=== PATIENT | female | born 1945 | race Caucasian/White ===

== ENCOUNTER 2016-12-05 23:23 | Emergency (ER) | payer MEDICARE ==
--- NOTE | 2016-12-05 23:55 | Emergency Department Record ---
History of Present Illness - General Chief complaint: Female Urogenital Problem Stated complaint: UTI Time Seen by Provider: 12/05/16 23:54 Source: Patient Mode of Arrival: Ambulatory Limitations: No limitations - History of Present Illness Initial comments: The patient is here due to pelvic cramping and urinary burning for the last 6 hours. She was recently 2 weeks ago treated for a UTI with Cipro but did have her urine rechecked last week and was told everything was ok. Now the urinary symptoms have returned today. Additionally she feels she may have a yeast infection. The patient denies any abdominal pain, fever, chills, vomiting, or diarrhea. MD Complaint: Dysuria Onset/Timin -: Hour(s) Severity scale (1-10): 5 Quality: Burning, Cramping Consistency: Intermittent Improves with: None Worsens with: Urination Associated Symptoms: Dysuria, Vaginal discharge - Related Data Home Medications Medication Instructions Recorded Confirmed Last Taken Albuterol Sulfate 0.083% [Neb] 3 ml NEB .EVERY 4-6 HOURS PRN 12/05/16 12/06/16 Unknown Albuterol Sulfate [Ventolin Hfa] 1 - 2 puff IH .EVERY 4-6 HOURS PRN 12/05/16 Unknown Aspirin 81 mg PO DAILY 12/05/16 12/06/16 Unknown Citalopram Hydrobromide 20 mg PO DAILY 12/05/16 12/06/16 Unknown [Citalopram HBr] Fluticasone Propionate [Flonase] 2 spray EACH NARES DAILY 12/05/16 12/06/16 Unknown Hydrochlorothiazide [Hctz 12.5MG] 25 mg PO DAILY 12/05/16 12/06/16 Unknown Lisinopril [Zestril] 30 mg PO DAILY 12/05/16 12/06/16 Unknown Loratadine [Claritin] 10 mg PO QPM 12/05/16 12/06/16 Unknown Lovastatin 40 mg PO QPM 12/05/16 12/06/16 Unknown Metoprolol Succinate [Toprol Xl] 25 mg PO QPM 12/05/16 12/06/16 Unknown Multivitamin [Multi-Vitamin Daily] 1 each PO DAILY 12/05/16 12/06/16 Unknown Omeprazole 40 mg PO DAILY 12/05/16 12/06/16 Unknown Ascorbic Acid [Vitamin C] 1,000 mg PO DAILY 12/06/16 12/06/16 Unknown Calcium Carb/Vitamin D3/Vit K1 2 each PO DAILY 12/06/16 12/06/16 Unknown [Calcium + D Soft Chewable Tab] Flaxseed Oil [Flax Seed Oil] 1,000 mg PO DAILY 12/06/16 12/06/16 Unknown Previous Rx's Medication Instructions Recorded Nitrofurantoin Trigg [Macrobid] 100 mg PO BID #10 capsule 12/06/16 Allergies Allergy/AdvReac Type Severity Reaction Status Date / Time acetaminophen Allergy RAPID Verified 12/05/16 23:37 [From Darvocet-N] HEART RATE prednisone Allergy RASH Verified 12/05/16 23:37 propoxyphene [From Darvon] Allergy RAPID Verified 12/05/16 23:37 HEART RATE caffeine AdvReac jittery Verified 12/05/16 23:37 pseudoephedrine AdvReac RAPID Verified 12/05/16 23:37 [From Sudafed] HEART RATE Travel Screening - Travel/Exposure Within Last 30 Days Have you traveled within the last 30 days?: No - Travel Symptoms Symptom Screening: None Review of Systems Constitutional: Denies: Chills, Fever Eyes: Denies: Eye discharge ENT: Denies: Congestion Respiratory: Denies: Cough, Dyspnea Past Medical History - SOCIAL HISTORY Smoking Status: Never smoker - RESPIRATORY Hx Respiratory Disorders: Yes Hx Asthma: Yes - CARDIOVASCULAR Hx Cardio Disorders: Yes Hx Hypertension: Yes Comment:: high cholesterol ; leaking heart valve - NEURO Hx Neuro Disorders: No - GI Hx GI Disorders: Yes Hx Reflux: Yes - Hx Genitourinary Disorders: Yes Hx Renal Disease: (only has 1 kidney from ) - ENDOCRINE Hx Endocrine Disorders: No - MUSCULOSKELETAL Hx Musculoskeletal Disorders: Yes Hx Arthritis: Yes - PSYCH Hx Psych Problems: Yes Hx Depression: Yes - HEMATOLOGY/ONCOLOGY Hx Hematology/Oncology Disorders: No Family Medical History Any Significant Family History?: Yes Family Hx Comment (NOT TO BE USED IN PLACE OF ITEMS BELOW): Father from sepsis Hx Heart Disease: Mother, Grandparents Physical Exam - General General Appearance: Alert, Oriented x3, Cooperative, No acute distress - Head Head exam: Atraumatic, Normocephalic, Normal inspection - Eye Eye exam: Normal appearance, PERRL - Neck Neck exam: Normal inspection, Full ROM. negative: Tenderness - Respiratory Respiratory exam: Normal lung sounds bilaterally. negative: Respiratory distress - Cardiovascular Cardiovascular Exam: Regular rate, Normal rhythm, Normal heart sounds - GI/Abdominal GI/Abdominal exam: Soft, Normal bowel sounds. negative: Tenderness - exam: Deferred (I did offer to perform a pelvic exam on the patient but she is refusing.) - Back Back exam: Denies: CVA tenderness (R), CVA tenderness (L) - Neurological Neurological exam: Alert. negative: Motor sensory deficit - Psychiatric Psychiatric exam: negative: Anxious Course Vital Signs 12/05/16 23:35 Temperature 98.4 F Pulse Rate [ 75 Pulse Ox Probe] Respiratory 20 Rate Blood Pressure 182/83 [Left Arm] Pulse Ox 97 - Reevaluation(s) Reevaluation #1: The patient is doing very well at this time. She denies any pain or discomfort. I did explain to her the urine did demonstrate a UTI and we will treat her with Macrobid. 12/06/16 00:46 Medical Decision Making - Lab Data Result diagrams: 12/06/16 00:16 12/06/16 00:16 Disposition Disposition: Discharge Clinical Impression: Cystitis Disposition: Home, Self-Care Condition: (1) Good Instructions: Urinary Tract Infection in Women (ED) Additional Instructions: Please continue the Macrobid as directed and also the vaginal cream. Please see your PCP for recheck in 3-5 days. Return to the ER if worse. Prescriptions: Nitrofurantoin Trigg [Macrobid] 100 mg PO BID #10 capsule Forms: Patient Portal Access Time of Disposition: 00:44 Quality - Quality Measures Quality Measures: N/A - Blood Pressure Screening View Details: Yes Does Patient Have Any of the Following: No Blood Pressure Classification: Pre-Hypertensive BP Reading Systolic Measurement: 182 Diastolic Measurement: 83 Screening for High Blood Pressure: < Pre-Hypertensive BP, F/U Documented > [ [id number]] Pre-Hypertensive Follow-up Interventions: Referral to alternative/primary care provider.
[2016-12-06 00:01] LABS: URINE APPEARANCE CLEAR; URINE BILIRUBIN NEGATIVE (NEGATIVE); URINE BLOOD MODERATE (NEGATIVE); URINE COLOR YELLOW; URINE GLUCOSE (UA) NEGATIVE (NEGATIVE); URINE KETONE NEGATIVE (NEGATIVE); URINE LEUKOCYTE ESTERASE MODERATE (NEGATIVE); URINE NITRITE NEGATIVE (NEGATIVE); URINE PROTEIN NEGATIVE (NEGATIVE); URINE UROBILINOGEN 0.2 E.U./dL (0.20 - 1.00)
[2016-12-06 00:09] LABS: URINE BACTERIA FEW; URINE EPITHELIAL CELLS 0 - 2 (FEW); URINE RBC 0 - 2 (NONE SEEN)
[2016-12-06] MEDS ORDERED: NITROFURANTOIN MONO 100 MG CAPSULE PO ONE (00:19)
[2016-12-06 00:22] LABS: BASO % 0.5 % (0-6); EOS % 4.8 % (0-6); GRAN % 56.1 % (47-80); HEMATOCRIT 40.3 % (35.0-47.0); HEMOGLOBIN 13.6 gm/dl (11.6-16.0); LYMPH % 31.4 % (16-45); MEAN CORPUSCULAR HEMOGLOBIN 29.4 pg (27-33); MEAN CORPUSCULAR HGB CONC 33.7 g/dl (32-36); MEAN PLATELET VOLUME 10.6 fl (7.4-10.4); MONO % 7.2 % (0-9); PLATELET COUNT 268 K/uL (130-400); RED BLOOD COUNT 4.63 M/uL (3.80-5.40); RED CELL DISTRIBUTION WIDTH 13.6 % (11.5-14.5); WHITE BLOOD COUNT W/O DIFF 8.3 K/uL (4.2-12.2)
[2016-12-06 00:36] LABS: BLOOD UREA NITROGEN 14 mg/dL (8-23); CREATININE 0.8 mg/dL (0.5-0.9); EST GLOMERULAR FILTRATION RATE > 60 mL/min; GLUCOSE,RANDOM 103 mg/dL (74-109)
== END 2016-12-06 00:57 | disposition home or self-care (01) ==
LOC: ER 23:23
DX: N30.91 Cystitis, unspecified with hematuria (principal)
CPT/HCPCS: 80048; 81001; 81003; 85025; 99283